=== PATIENT | female | born 1960 | race Caucasian/White ===

== ENCOUNTER → 2017-10-25 | Outpatient (CLI) | payer MEDICARE, MEDICAID ==
[2017-10-25 08:10] VITALS: BP 78/50; BP 85/51; BP 96/50
[2017-10-25 10:16] VITALS: BP 81/50; BP 84/52; BP 88/53; BP 91/56; BP 96/50
--- NOTE | 2017-10-25 13:20 | NUR ---
ARRIVED PER WHEELCHAIR. TRNASFERED SELF TO RECLINER WITH STANDBY ASSIST. PICC TO LEFT UPPER ARM INTACT AND PATENT. TRANSFUSION COMPLETED AND TOLERATED WELL. DENEIS NEEDS OR QUESTIONS AT DISCHARGE.
== END ==
LOC: M.INFUS 06:03 → M.LAB 08:00
DX: D64.9 Anemia, unspecified (principal)

== ENCOUNTER → 2018-03-21 | Outpatient (CLI) | payer MEDICARE, MEDICAID ==
[2018-03-21 10:26] LABS: HEMATOCRIT 21.1 % (37.0-47.0); HEMOGLOBIN 7.3 gm/dL (12.0-15.0); MCH 35.9 pg (26.0-34.0); MCHC 34.4 g/dL (28.0-37.0); MCV 104.4 fL (80.0-100.0); MPV 8.7 fl. (7.2-11.1); NUCLEATED RBCS 6 /100WBC; RBC 2.03 mil/uL (4.20-5.00); RDW-CV 14.8 % (10.5-14.5); WBC 2.5 thou/uL (4.0-11.0)
[2018-03-21 10:55] LABS: ABSOLUTE LYMPHOCYTES 0.1 thou/uL (0.8-5.3); ABSOLUTE MONOCYTES 0.7 thou/uL (0.0-1.2); ABSOLUTE NEUTROPHILS 1.7 thou/uL (1.6-8.1); HYPOCHROMASIA 1+; PLATELET ESTIMATE DECREASED
[2018-03-21 10:56] LABS: LARGE PLATELETS RARE; MACROCYTES 2+; OVALOCYTES Occasional; TARGET CELLS Occasional; TOXIC GRANULATION 1+
[2018-03-21 10:57] LABS: ANISOCYTOSIS 2+; POIKILOCYTOSIS 2+; POLYCHROMASIA Occasional
[2018-03-21 10:58] LABS: PLATELET COUNT* 15 thou/uL (150-400)
[2018-03-21 14:19] VITALS: BP 102/66; BP 91/55; BP 94/56
[2018-03-21 15:43] VITALS: BP 102/66; BP 94/56; BP 94/66
--- NOTE | 2018-03-21 16:48 | NUR ---
DUAL LUMAN PICC INTACT AND BOTH LUMAN PATENT. TRANSFUSION COMPLETED AND TOLERATED WELL. BOTH LUMAN FLUSHE. DENEIS QUESTION OR NEED AT DISCHARGE.
== END ==
LOC: M.INFUS 05:08
PROVIDERS: Internal Medicine Hematology & Oncology
DX: D69.6 Thrombocytopenia, unspecified (principal); C83.36 Diffuse large B-cell lymphoma, intrapelvic lymph nodes

== ENCOUNTER → 2018-04-15 | Outpatient (CLI) | payer MEDICARE, MEDICAID ==
[2018-04-15 08:28] VITALS: BP 83/51; BP 84/53
[2018-04-15 09:23] VITALS: BP 80/49; BP 83/51; BP 86/56; BP 89/52
--- NOTE | 2018-04-15 09:57 | NUR ---
ARRIVED PER WHEELCHAIR. TRANSFERED SELF TO RECLINER. DUAL LUMAN PICC NOTED TO RIGHT UPPER ARM. PICC PATENT FLUSHED WITH EASE AND GOOD BRISK BLOOD RETURN. PLATELET COMPLETED AND TOLERATED WELL. TRANSFUSION STARTED AND BEING TOLERATED WELL. AT CHAIRSIDE. DENEIS QUESTIONS OR NEEDS AT THIS TIME.
[2018-04-15 11:17] VITALS: BP 86/56; BP 86/60; BP 90/62; BP 94/66; BP 97/69
--- NOTE | 2018-04-15 14:54 | NUR ---
TRANSFUSION COMPLETED AND TOLERATED WELL. PICC FLUSHED. DISCHARGE REVIEWED. DENEIS QUESTIONS OR NEEDS AT DISCHARGE.
== END ==
LOC: M.INFUS 04:25
DX: C83.07 Small cell B-cell lymphoma, spleen (principal); D64.9 Anemia, unspecified; D69.6 Thrombocytopenia, unspecified